=== PATIENT | female | born 1955 | race Caucasian/White ===

== ENCOUNTER 2020-01-28 09:47 | Emergency (ER) | payer MEDICARE, OTHER, SELFPAY ==
--- NOTE | ~2020-01-28 | XR_ITS ---
EXAMINATION: XR abdomen/kub 1V EXAM DATE: 01/28/2020 10:39 INDICATION: Left lower quadrant pain. History diverticulitis with bowel resection. TECHNIQUE: Frontal upright projection of the upper abdomen, frontal projection of the lower abdomen f or interpretation. There is no prior study for comparison. FINDINGS: There is moderate amount of colonic stool and gas. No small bowel dilation, nonobstructiv e bowel gas pattern. There are no suspicious calcifications identified. There is no organomegaly suspected. The bones are unremarkable. IMPRESSION: Moderate amount of colonic stool and gas. Reviewed, dictated and finalized at location B.
[2020-01-28 10:05] VITALS: BP 157/82; PULSE 75; RESP 20; TEMP 37.1; O2SAT 97
--- NOTE | 2020-01-28 10:08 | ED.GENADULT ---
HPI - General Adult General Chief complaint: Abdominal Pain Stated complaint: Diverticulitis Time Seen by Provider: 01/28/20 10:13 Source: patient and RN notes reviewed Mode of arrival: ambulatory Limitations: no limitations History of Present Illness HPI narrative: -year-old male presents with complaints of with redness, tenderness, and swelling for the past day. Tender to touch. No drainage. History of skin abscess. No fever or chills. No abdominal pain, nausea, and vomiting. Remains active. Some parts of this dictation were generated by voice recognition software and may contain typographical and/or grammatical inaccuracies. Related Data Allergies Allergy/AdvReac Type Severity Reaction Status Date / Time hydromorphone [From Dilaudid] AdvReac Hives Verified 01/28/20 10:11 moxifloxacin AdvReac Hives Verified 01/28/20 10:11 Review of Systems Review of Systems: Narrative: CONSTITUTIONAL: Denies fever, chills, sweats. EYES: Denies visual changes, redness, discharge. ENT: Denies rhinorrhea, congestion, sore throat, otalgia. CARDIOVASCULAR: Denies chest pain, palpitations, edema. RESPIRATORY: Denies dyspnea, wheezing, cough. GASTROINTESTINAL: Denies abdominal pain, nausea, vomiting, diarrhea. GENITOURINARY: Denies dysuria, hematuria, abnormal discharge. SKIN: Denies rash or itching. Right/Left with redness, tenderness, swelling, and drainage. MUSCULOSKELETAL: Denies acute back pain, joint pain, or myalgia. NEUROLOGIC: Denies numbness or focal weakness. PSYCHIATRIC: Denies anxiety or depression. All systems reviewed & are unremarkable except as noted in HPI and below. PMFSH Comments At time of signature, I have reviewed and agree with nursing past medical, surgical, social, and family history. Please see nursing chart for further information. There is no relevant family history pertinent to the presenting complaint. Exam Narrative: Exam Narrative: GENERAL: This is a well-nourished, well-developed patient, in no apparent distress. Talking in full sentences without deficit and ambulate with steady gait without dyspnea. HEAD: normocephalic, atraumatic. EYES: PERRL. Sclera clear/white. Vision is grossly intact. NECK: Neck supple, non-tender without lymphadenopathy, masses or thyromegaly. CARDIOVASCULAR: Regular rate and rhythm without murmurs, gallops, or rubs. RESPIRATORY: Clear to auscultation. Breath sounds equal bilaterally. No wheezes, rales, or rhonchi. GASTROINTESTINAL: Abdomen soft, non-tender, nondistended. Bowel sounds are active. No hepato-splenomegaly, or palpable masses. No guarding. SKIN: warm, right/left with cm x cm induration area with mild-moderate swelling, erythema, and warmth, no fluctuation or streaking. I&D not necessary at this time. Good texture and turgor. NEURO: awake, alert, and oriented to person, place and time. There were no obvious focal neurologic abnormalities. EXTREMITIES: No clubbing, cyanosis, or edema. No joint tenderness, effusion, or edema noted. BACK: Nontender without deformity or crepitance. No flank tenderness. [place] Coma Scale Eye Opening: Spontaneous 4 [place] Coma Scale Motor: Obeys Commands 6 [place] Coma Scale Verbal: Oriented 5 Medical Decision Making MDM Narrative Medical decision making narrative: PLEASE TAKE ANTIBIOTICS DIRECTED KEEP THE AFFECTED AREA CLEAN AND DRY APPLY WARM MOIST COMPRESSES TO THE AREA 4-5 TIMES A DAY FOR AT LEAST 20 MINUTES DO NOT PICK AT THE [place] MOST BOILS WILL DRAIN SPONTANEOUSLY AND WILL HEAL WITHOUT SCARRING WITHIN SEVERAL DAYS YOU MAY NEED TO RETURN FOR INCISION AND DRAINAGE OF AREA IF IT BECOMES MORE ELEVATED AND READY TO DRAIN. SEE YOUR PRIMARY MD OR RETURN IF CONSISTENT FEVER, INCREASED REDNESS OR THE ABSCESS BECOMES MORE ELEVATED AND READY TO DRAIN PREVENTION: FOR 1-2 WEEKS, WASH ENTIRE BODY AND FINGERNAILS (USING FINGERNAIL BRUSH) DAILY WITH POVIDONE-IODINE (BETADINE), CHLORHEXIDINE (HIBICLENS) OR PHISOHEX OR TAKE A BLEACH BATH 2 TIMES WEE
--- NOTE | 2020-01-28 10:21 | ED.GENADULT ---
HPI - General Adult General Chief complaint: Abdominal Pain Stated complaint: Diverticulitis Time Seen by Provider: 01/28/20 10:13 Source: patient and RN notes reviewed Mode of arrival: ambulatory Limitations: no limitations History of Present Illness HPI narrative: 64-year-old female presents with complaints of left lower abdomen pain that radiates to left lower back with bloating and nausea for the past 2 days. No treatment. No pelvic pain. No vaginal discharge. No concerns for STDs. No fever or chills. No vomiting or diarrhea. No flank pain. Exacerbating factors consist of eating and certain movements. Denies dysuria, hematuria, and vaginal bleeding. No blood in stool or constipation. Last BM was 01/27/20, normal per Bekah. History of Diverticulitis and IBS. No cough or dyspnea. Denies chest pain and dizziness. Urine output within normal limits. Remains active. The patient reports she have not been diagnosed with COVID-19. The patient reports she is not waiting for the results of a COVID-19 lab test. The patient reports she do not have fever, chills, or fatigue. The patient reports she do not have a new or worsening cough or shortness of breath. Denies chest pain. The patient reports she do not have any rhinorrhea, congestion, sore throat, vomiting, and diarrhea. Tolerating po intake well. Denies recent traveling. Denies concerns for COVID-19 or exposures been home with limited outdoor exposure except for essential household needs, work, and return home. At this time, patient is not suspected of having COVID-19. Some parts of this dictation were generated by voice recognition software and may contain typographical and/or grammatical inaccuracies. Related Data Allergies Allergy/AdvReac Type Severity Reaction Status Date / Time hydromorphone [From Dilaudid] AdvReac Hives Verified 01/28/20 10:11 moxifloxacin AdvReac Hives Verified 01/28/20 10:11 Review of Systems Review of Systems: Narrative: CONSTITUTIONAL: Denies fever, chills, sweats. EYES: Denies visual changes, redness, discharge. ENT: Denies rhinorrhea, congestion, sore throat, otalgia. CARDIOVASCULAR: Denies chest pain, palpitations, edema. RESPIRATORY: Denies dyspnea, wheezing, cough. GASTROINTESTINAL: Denies vomiting, diarrhea. Complains of LT lower abdominal pain that radiates to LT lower back and nausea. GENITOURINARY: Denies dysuria, hematuria, abnormal discharge. SKIN: Denies rash or itching. MUSCULOSKELETAL: Denies acute back pain, joint pain, or myalgia. NEUROLOGIC: Denies numbness or focal weakness. PSYCHIATRIC: Denies anxiety or depression. All systems reviewed & are unremarkable except as noted in HPI and below. [facility] Past Medical History Medical History (Updated 01/28/20 @ 11:10 by RASTA Lam) Brain tumor COPD (chronic obstructive pulmonary disease) Deviated nasal septum Diverticulitis Hypertension IBS (irritable bowel syndrome) Seizures Surgical History Surgical History (Updated 01/28/20 @ 10:32 by RASTA Lam) History of colon surgery History of hernia surgery X2 umbilical History of nasal surgery due to deviated septum Hx of appendectomy Family History Family History (Updated 01/28/20 @ 10:33 by RASTA Lam) Father , Lewy body dementia Dementia Mother , Fell down steps and developed pneumonia No problems noted. Social History Social History (Updated 01/28/20 @ 10:34 by RASTA Lam) Smoking packs per day: 1 Smoking cigarettes per day: 20.0 Years smoked: 46 Smoking pack-years: 46.00 Smoking status: Current every day smoker Tobacco type: cigarettes Alcohol intake: current Alcohol use details: Rarely Substance use: never Occupation/Education: occupation Gender identity (if verbalized by the patient): Female Comments At time of signature, agree with nurse past medical, surgical, social, and family history.
== END 2020-01-28 11:15 | disposition home or self-care (01) ==
PROVIDERS: Emergency Provider Nurse Practitioner Family; PCP Family Medicine
DX: R10.32 Left lower quadrant pain (principal); F17.210 Nicotine dependence, cigarettes, uncomplicated; J44.9 Chronic obstructive pulmonary disease, unspecified; I10 Essential (primary) hypertension; K58.9 Irritable bowel syndrome, unspecified
CPT/HCPCS: 74018; 81003; 99213; G0463